=== PATIENT | male | born 1985 | race Caucasian/White ===

== ENCOUNTER 2016-12-28 11:51 | Emergency (ER) | payer OTHER ==
[2016-12-28 12:00] VITALS: BP 123/84; PULSE 95; RESP 17; TEMP 96.4
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
== END 2016-12-28 12:50 | disposition home or self-care (01) ==
LOC: EC 11:51
DX: S09.90XA Unspecified injury of head, initial encounter (principal); F17.200 Nicotine dependence, unspecified, uncomplicated; Z88.0 Allergy status to penicillin; W55.12XA Struck by horse, initial encounter; Y93.52 Activity, horseback riding; Y92.89 Other specified places as the place of occurrence of the external cause
CPT/HCPCS: 70450; 72125; 99283

== ENCOUNTER 2017-06-06 09:55 | Emergency (ER) | payer OTHER ==
[2017-06-06 10:26] VITALS: BP 144/82; TEMP 98
[2017-06-06] MEDS ORDERED: KETOROLAC 60 MG/2 ML VIAL IM STA (10:51)
[2017-06-06] MEDS ORDERED: ORPHENADRINE 30 MG/ML 2 ML VIAL IM STA (10:51)
--- NOTE | 2017-06-06 10:58 | ED ---
General Adult HPI - General Chief complaint: Back Pain/Injury Stated complaint: left shoulder pain Time Seen by Provider: 06/06/17 10:32 Source: patient, RN notes reviewed Mode of arrival: wheelchair Limitations: no limitations - History of Present Illness Initial comments: 31-year-old male presents emergency Department chief complaint of left shoulder pain. He states yesterday he just developed this tightness in left shoulder movement of the shoulder seems to make it worse. Radiates all area left side of the neck. He states movement of the neck seems to make it worse as well. He denies any lifting any trauma any injury to the area. He denies any history of this in the past. He states that he was concerned because he woke up today and it just continues to be presents without that he should be evaluated. Patient denies any recent fever, chills, shortness of breath, chest pain, back pain, abdominal pain, nausea vomiting, numbness or tingling, dysuria or hematuria, constipation or diarrhea, headaches or visual changes, or any other current symptoms. - Related Data Home Medications Medication Instructions Recorded Confirmed FLUoxetine HCL [PROzac] 20 mg PO DAILY 06/06/17 06/06/17 Gabapentin [Neurontin] 300 mg PO TID 06/06/17 06/06/17 Previous Rx's Medication Instructions Recorded Ibuprofen [Motrin] 600 mg PO Q6HR PRN #20 tab 06/06/17 Orphenadrine [Norflex] 100 mg PO Q12H #10 tablet.er 06/06/17 Allergies Allergy/AdvReac Type Severity Reaction Status Date / Time Penicillins Allergy Rash/Hives Verified 06/06/17 10:49 Review of Systems ROS Statement: Those systems with pertinent positive or pertinent negative responses have been documented in the HPI. ROS Other: All systems not noted in ROS Statement are negative. Past Medical History Past Medical History: No Reported History History of Any Multi-Drug Resistant Organisms: None Reported Past Surgical History: No Surgical Hx Reported Past Psychological History: No Psychological Hx Reported Smoking Status: Current every day smoker Past Alcohol Use History: None Reported Past Drug Use History: None Reported General Exam Limitations: no limitations General appearance: alert, in no apparent distress Neck exam: Present: tenderness (Along the left lateral trapezius.), full ROM ( With pain on range of motion). Absent: normal inspection (Patient is sitting with his head tilted to the right side.) Respiratory exam: Present: normal lung sounds bilaterally. Absent: respiratory distress, wheezes, rales, rhonchi, stridor Cardiovascular Exam: Present: regular rate, normal rhythm, normal heart sounds. Absent: systolic murmur, diastolic murmur, rubs, gallop, clicks GI/Abdominal exam: Present: soft, normal bowel sounds. Absent: distended, tenderness, guarding, rebound, rigid Extremities exam: Present: normal inspection, full ROM (Some pain with extremes of range of motion.), tenderness (Along the left upper shoulder blade to the trapezius.), normal capillary refill. Absent: pedal edema, joint swelling, calf tenderness Back exam: Present: normal inspection Neurological exam: Present: alert, oriented X3 Psychiatric exam: Present: normal affect, normal mood Skin exam: Present: warm, dry, intact, normal color. Absent: rash Course Vital Signs 06/06/17 10:24 Temperature 98.0 F Pulse Rate 119 H Respiratory 16 Rate Blood Pressure 144/82 O2 Sat by Pulse 98 Oximetry Medical Decision Making - Medical Decision Making 31-year-old male presents to the emergency department with a chief complaint of left shoulder pain. This time on examination he does appear to have muscle spasm to the left trapezius as well as along the rhomboids. Movement of the shoulder causes increased pain. This and we'll start him on muscle relaxers. We discussed heat packs we did discuss follow-up parameters all questions. Patient stated that he understood he is agreement this plan. All questions have been answered. He will be discharged. - Radiology Data Radiology results: report reviewed, image reviewed Disposition Clinical Impression: Trapezius muscle spasm Disposition: HOME SELF-CARE Condition: Stable Instructions: Muscle Spasm (ED) Additional Instructions: Please use medication as discussed. Please follow up with family doctor if symptoms have not improved over the next two days. Please return to the emergency room if your symptoms increase or worsen or for any other concerns. Prescriptions: Ibuprofen [Motrin] 600 mg PO Q6HR PRN #20 tab PRN Reason: Pain Orphenadrine [Norflex] 100 mg PO Q12H #10 tablet.er Referrals: Betty Green MD [STAFF PHYSICIAN] - 1-2 days Time of Disposition: 10:58
[2017-06-06 11:11] VITALS: PULSE 102; RESP 18
== END 2017-06-06 11:11 | disposition home or self-care (01) ==
LOC: EC 09:55
DX: M62.838 Other muscle spasm (principal); F17.200 Nicotine dependence, unspecified, uncomplicated; Z79.899 Other long term (current) drug therapy; Z88.0 Allergy status to penicillin
CPT/HCPCS: 93005; 99283; 96372 ×2; J2360; J1885

== ENCOUNTER 2017-07-05 21:10 | Inpatient (IN) | payer OTHER ==
[2017-07-05] MEDS ORDERED: SODIUM CHLORIDE 0.9% 1,000 ML IV ONE (22:13)
[2017-07-05] MEDS ORDERED: ACETAMINOPHEN TAB 325 MG TAB PO STA (22:13)
[2017-07-05] MEDS ORDERED: RX INFO: IV CONTRAST WAS GIVEN 1 EACH MISC MISCELLANE PRN (22:13)
[2017-07-05 22:42] LABS: Basophils % (A) 0 %; Eosinophils # (A) 0.3 k/uL (0-0.7); Eosinophils % (A) 2 %; HCT 43.5 % (39.0-53.0); Lymphocytes # (A) 2.3 k/uL (1.0-4.8); Lymphocytes % (A) 21 %; MCH 28.1 pg (25.0-35.0); MCHC 32.2 g/dL (31.0-37.0); MCV 87.2 fL (80.0-100.0); Mean Platelet Volume 6.3; Monocytes # (A) 0.7 k/uL (0-1.0); Monocytes % (A) 6 %; Neutrophils # (A) 7.7 k/uL (1.3-7.7); Neutrophils % (A) 69 %; Platelet Count 396 k/uL (150-450); RBC 4.99 m/uL (4.30-5.90); RDW 13.3 % (11.5-15.5); WBC 11.1 k/uL (3.8-10.6)
[2017-07-05 22:53] LABS: Partial Thromboplastin Time 25.1 sec (22.0-30.0); Prothrombin Time 9.7 sec (9.0-12.0)
[2017-07-05 22:54] LABS: ALT 41 U/L (21-72); AST 37 U/L (17-59); Albumin 3.9 g/dL (3.5-5.0); Alkaline Phosphatase 99 U/L (38-126); Anion Gap 13 mmol/L; Blood Urea Nitrogen 12 mg/dL (9-20); Carbon Dioxide 27 mmol/L (22-30); Chloride 100 mmol/L (98-107); Glucose 78 mg/dL (74-99); Lipase 91 U/L (23-300); Potassium 4.5 mmol/L (3.5-5.1); Sodium 140 mmol/L (137-145); Total Bilirubin 0.7 mg/dL (0.2-1.3); Total Protein 7.6 g/dL (6.3-8.2)
[2017-07-05] MEDS ORDERED: MORPHINE SULFATE 4 MG/ML SYRINGE IVP STA (23:30)
--- NOTE | 2017-07-05 23:33 | CT ---
EXAMINATION TYPE: CT chest angio for PE DATE OF EXAM: 07/05/2017 COMPARISON: NONE HISTORY: Chest pain CT DLP: 452.30 mGycm Automated exposure control for dose reduction was used. CONTRAST: CT Chest for pulmonary embolism performed with with IV Contrast, patient injected with 70 mL of Omnip aque 350. There are 3-D post processed images. FINDINGS: There is patchy linear density at the lung bases. There is a 3.4 cm irregular somewhat spiculated density at the anterior left lung apex. This is proba kalee within the lung. I see no filling defects in the pulmonary arteries. Heart size is normal. There is no mediastinal lalo nopathy. There are no hilar masses. There is no sign of aortic aneurysm or dissection. The bony thora x is intact. IMPRESSION: No evidence of pulmonary embolism. Mild pleural reaction and atelectasis at the posterior lung bases. Masslike infiltrate adjacent to the pleura in the anterior left upper lobe. This could be inflammator y. Follow-up is recommended to show clearing.
[2017-07-06] MEDS ORDERED: VANCOMYCIN IV PER PHARMACY 1 EACH MISC MISCELLANE PRN (00:10)
[2017-07-06] MEDS ORDERED: CEFEPIME 2 GM in SODIUM CHLORIDE 0.9% 50 ML IVPB STA (00:10)
[2017-07-06] MEDS ORDERED: ACETAMINOPHEN TAB 325 MG TAB PO PRN ×2 (00:38→00:44)
[2017-07-06] MEDS ORDERED: ONDANSETRON 4 MG/2 ML VIAL IVP PRN (00:38)
[2017-07-06] MEDS ORDERED: NALOXONE 0.4 MG/ML 1 ML VIAL IV PRN (00:38)
--- NOTE | 2017-07-06 00:38 | ED ---
Chest Pain HPI - General Chief Complaint: Chest Pain Stated Complaint: chest pain Time Seen by Provider: 07/05/17 21:29 Source: patient Mode of arrival: ambulatory Limitations: no limitations - History of Present Illness Initial Comments: 32-year-old male with past medical history of IV drug abuse, sober for the last year, presenting for evaluation of chest pain, shortness breath, fevers, diaphoresis. He states that his symptoms have been ongoing for the last month and was seen at this time due to a mass on his back. He states that mass has since moved around to the anterior upper left chest and is tender to palpation. He states he's been taking Motrin and Tylenol without any improvement in his symptoms. Furthermore he says that he has been having persistent fevers and chills for the duration of the month. The shortness of breath is worsened with exertion and chest pain is primarily located over the mass. There are no alleviating factors. - Related Data Home Medications Medication Instructions Recorded Confirmed FLUoxetine HCL [PROzac] 20 mg PO DAILY 06/06/17 07/05/17 Gabapentin [Neurontin] 300 mg PO TID 06/06/17 07/05/17 Acetaminophen Tab [Tylenol Tab] 650 mg PO Q4H PRN 07/05/17 07/05/17 Cilostazol [Pletal] 100 mg PO BID 07/05/17 07/05/17 Ranitidine HCl [Zantac] 75 mg PO HS PRN 07/05/17 07/05/17 Allergies Allergy/AdvReac Type Severity Reaction Status Date / Time NSAIDS (Non-Steroidal Allergy Unknown Verified 07/05/17 21:47 Anti-Inflamma Penicillins Allergy Rash/Hives Verified 07/05/17 21:47 Review of Systems ROS Statement: Those systems with pertinent positive or pertinent negative responses have been documented in the HPI. ROS Other: All systems not noted in ROS Statement are negative. Constitutional: Reports: fever, chills, night sweats Eyes: Denies: eye pain, eye discharge, vision change ENT: Denies: ear pain, throat pain, dental pain Respiratory: Reports: cough, dyspnea. Denies: wheezes, hemoptysis, stridor Cardiovascular: Reports: chest pain, dyspnea on exertion. Denies: palpitations , orthopnea, edema Endocrine: Reports: fatigue. Denies: polydipsia, polyuria Gastrointestinal: Denies: abdominal pain, nausea, vomiting, diarrhea, constipation Genitourinary: Denies: urgency, dysuria Musculoskeletal: Denies: back pain, arthralgia, myalgia Skin: Denies: rash, lesions Neurological: Denies: headache, weakness Psychiatric: Denies: anxiety, depression Hematological/Lymphatic: Denies: easy bleeding, easy bruising EKG Findings - EKG Comments: EKG Findings:: Sinus tachycardia with a ventricular rate of 113, BALAJI 148, QRS 74 , QT/QTC 356/488 Past Medical History Past Medical History: No Reported History Additional Past Medical History / Comment(s): cellulitis to left foot and right arm. History of Any Multi-Drug Resistant Organisms: None Reported Past Surgical History: No Surgical Hx Reported Past Psychological History: No Psychological Hx Reported Smoking Status: Current every day smoker Past Alcohol Use History: None Reported Past Drug Use History: None Reported General Exam Limitations: no limitations General appearance: alert, in distress (Mild to moderate), other (Diaphoretic) Head exam: Present: atraumatic, normocephalic, normal inspection Eye exam: Present: normal appearance, PERRL, EOMI. Absent: scleral icterus, conjunctival injection, periorbital swelling ENT exam: Present: normal exam, mucous membranes dry Neck exam: Present: normal inspection. Absent: tenderness, meningismus, lymphadenopathy Respiratory exam: Present: normal lung sounds bilaterally. Absent: respiratory distress, wheezes, rales, rhonchi, stridor Cardiovascular Exam: Present: normal rhythm, tachycardia, other (left upper chest wall pain) GI/Abdominal exam: Present: soft, normal bowel sounds. Absent: distended, tenderness, guarding, rebound, rigid Rectal exam: Present: deferred Extremities exam: Present: normal inspection, full ROM, normal capillary refill. Absent: tenderness, pedal edema, joint swelling, calf tenderness Back exam: Present: normal inspection, full ROM Neurological exam: Present: alert, oriented X3, CN II-XII intact Psychiatric exam: Present: normal affect, normal mood Skin exam: Present: warm, intact, normal color, diaphoretic. Absent: rash Course Vital Signs 07/05/17 07/05/17 07/05/17 21:20 22:25 23:19 Temperature 100.1 F H 98.5 F Pulse Rate 117 H 94 Respiratory 20 18 Rate Blood Pressure 133/90 132/80 O2 Sat by Pulse 99 96 Oximetry 07/06/17 07/06/17 00:01 01:02 Temperature Pulse Rate 88 87 Respiratory 18 18 Rate Blood Pressure 137/76 142/74 O2 Sat by Pulse 99 99 Oximetry Chest Pain MDM - MDM 32-year-old male with past medical history of IV drug abuse presenting for evaluation of a month of diaphoresis, fevers, chest pain, shortness of breath. On physical examination the patient is febrile and tachycardic and is diaphoretic. There is a elevated mass to the left upper chest just inferior to the left clavicle that is tender to palpation without overlying erythema or crepitus to palpation. Given his past medical history is concern for endocarditis. We'll obtain labs, blood cultures, CT PE, and order an echo for the morning. Labs revealed no significant abnormalities. CT PE showed a 3.4 cm irregular somewhat speculated density of the anterior left lung apex that is likely within the lung. No evidence of pulmonary embolism. Patient started on vancomycin and cefepime. Dr. Emerson PHAM accepted admission with request for consult with Dr. Arellano (pulm) and Dr. Cole (ID). Disposition Clinical Impression: Chest pain, Shortness of breath, Diaphoresis, Tachycardia Disposition: ADMITTED IP TO THIS HOSP Referrals: Adebayo Falcon MD [Primary Care Provider] - 1-2 days Decision to Admit Reason: Admit from EC Decision Date: 07/06/17 Decision Time: 00:38
[2017-07-06] MEDS ORDERED: FAMOTIDINE 20 MG TAB PO PRN (00:44)
[2017-07-06] MEDS ORDERED: VANCOMYCIN 1,500 MG in SODIUM CHLORIDE 0.9% 250 ML IVPB ONE (01:00)
[2017-07-06] MEDS: SODIUM CHLORIDE 0.9% 1,000 ML IV SCH ×2 (01:02→08:56)
[2017-07-06 01:35] VITALS: BMI 30.9
[2017-07-06] MEDS: MORPHINE SULFATE 4 MG/ML SYRINGE IV PRN ×3 (04:21→12:24)
[2017-07-06] MEDS: VANCOMYCIN 1,500 MG in SODIUM CHLORIDE 0.9% 250 ML IVPB SCH ×2 (06:37→15:55)
[2017-07-06] MEDS: GABAPENTIN 300 MG CAP PO SCH ×2 (08:38→16:34)
[2017-07-06] MEDS ORDERED: FLUoxetine HCL 20 MG CAP PO SCH (09:00)
[2017-07-06] MEDS ORDERED: CILOSTAZOL 100 MG TAB PO SCH (09:00)
--- NOTE | 2017-07-06 12:19 | XR ---
EXAMINATION TYPE: XR chest 1V portable DATE OF EXAM: 07/06/2017 Comparison: CT 07/05/2017 Clinical History: 32 year-old male shortness of breath, evaluate for pneumonia? Findings: Heart normal size. Aorta and pulmonary vasculature within normal limits. Focal left apical density. N o other consolidation or pleural effusion. Impression: Focal left apical consolidation suspicious for infectious process. The patient's recent CT is reviewe d and suggests cellulitis in the left supraclavicular and clavicular region with underlying pectorali s myositis. Infection likely extends along the left sternoclavicular joint, left first costosternal j unction, into the left anterior superior mediastinum and with contiguous extension of infectious proc ess into the anterior left upper lobe. ID consultation recommended. Ultrasound may be useful to diffe rentiate phlegmon from any focal fluid along the chest wall and could also assess for any significant sternoclavicular joint effusion. Findings called to MUNA Sol on 6SEL at 12:10pm
--- NOTE | 2017-07-06 13:10 | ECHOF ---
Referral Reason:Chest pain MEASUREMENTS -------- HEIGHT: 180.3 cm WEIGHT: 98.0 kg BP: 132/69 IVSd: 1.1 cm (0.6 - 1.1) LVIDd: 4.4 cm (3.9 - 5.3) LVPWd: 1.0 cm (0.6 - 1.1) IVSs: 1.8 cm LVIDs: 2.3 cm LVPWs: 1.6 cm Ao Diam: 3.6 cm (2.0 - 3.7) AV Cusp: 2.2 cm (1.5 - 2.6) LA Diam: 3.2 cm (2.7 - 3.8) MV EXCURSION: 28.026 mm (> 18.000) MV EF SLOPE: 207 mm/s (70 - 150) EPSS: 1.9 cm MV E Jeremy: 0.96 m/s MV DecT: 183 ms MV A Jeremy: 0.81 m/s MV E/A Ratio: 1.19 RAP: 5.00 mmHg RVSP: 11.51 mmHg FINDINGS -------- Sinus rhythm. This was a technically good study. The left ventricular size is normal. There is borderline concentric left ventricular hypertrophy. Overall left ventricular systolic function is normal with, an EF between 55 - 60 %. The right ventricle is normal in size and function. The left atrium is normal in size. The right atrium is normal in size. The aortic valve is trileaflet, and appears structurally normal. No aortic stenosis or regurgitation. The mitral valve leaflets are mildly thickened. There is trace mitral regurgitation. Trace tricuspid regurgitation present. The right ventricular systolic pressure, as measured by Dopp ler, is 11.51mmHg. Pulmonic valve appears structurally normal. The aortic root size is normal. Normal inferior vena cava with normal inspiratory collapse consistent with estimated right atrial pre ssure of 5 mmHg. The pericardium is normal. CONCLUSIONS -------- 1. Sinus rhythm. 2. This was a technically good study. 3. The left ventricular size is normal. 4. There is borderline concentric left ventricular hypertrophy. 5. Overall left ventricular systolic function is normal with, an EF between 55 - 60 %. 6. The right ventricle is normal in size and function. 7. The left atrium is normal in size. 8. The right atrium is normal in size. 9. The aortic valve is trileaflet, and appears structurally normal. No aortic stenosis or regurgitati on. 10. The mitral valve leaflets are mildly thickened. 11. There is trace mitral regurgitation. 12. Trace tricuspid regurgitation present. 13. The right ventricular systolic pressure, as measured by Doppler, is 11.51mmHg. 14. Pulmonic valve appears structurally normal. 15. The aortic root size is normal. 16. Normal inferior vena cava with normal inspiratory collapse consistent with estimated right atrial pressure of 5 mmHg. 17. The pericardium is normal. INTEGRATIVE MEDICINE PHYSICIAN: Lee Ann Chopra RDCS
[2017-07-06 13:42] LABS: Appearance,Urine Clear (Clear); Bilirubin,Urine Negative (Negative); Blood,Urine Negative (Negative); Color,Urine Yellow; Glucose,Urine (UA) Negative (Negative); Ketones,Urine Negative (Negative); Leukocyte Esterase,Urine Negative (Negative); Nitrite,Urine Negative (Negative); Protein,Urine Negative (Negative); Specific Gravity,Urine 1.013 (1.001-1.035)
[2017-07-06 13:55] LABS: Amphetamine Screen,Urine Not Detected (NotDetected); Barbiturate Screen,Urine Not Detected (NotDetected); Benzodiazepines Screen,Urine Not Detected (NotDetected); Cocaine Screen,Urine Not Detected (NotDetected); Methadone Screen, Urine Not Detected (NotDetected); Opiate Screen,Urine Detected (NotDetected); Oxycodone Screen, Urine Not Detected (NotDetected); Phencyclidine Screen,Urine Not Detected (NotDetected); Tricyclic Antidepressant,Urine Not Detected (NotDetected); Urn Cannabinoid Scrn Not Detected (NotDetected)
--- NOTE | 2017-07-06 13:55 | P.CNPUL ---
History of Present Illness Consult date: 07/06/17 Requesting physician: Meet Norman Reason for consult: abnormal CXR/CT Chief complaint: Left scapula, shoulder and anterior wall chest pain History of present illness: This is a pleasant 32-year-old gentleman who has a known history of chronic and ongoing tobacco dependence and previous IV drug abuse with last injections being approximately 1 year ago. He does have a history of a left foot and right arm cellulitis from injections in the past. He had presented here to the emergency room approximately one month ago with complaints of left scapular pain that radiated into the left shoulder and left side of the neck. He denied any injury or trauma to this area. He was treated for a muscle spasm and was treated with muscle relaxants and heating pads. Since that time the pain has continued to worsen and has moved now from the left scapular area up into the left shoulder and down into the anterior portion of his left chest wall. He is in significant amount of discomfort. He has had fever chills or night sweats. No significant shortness of breath, cough or congestion. A CT angiogram of the chest ruled out pulmonary embolism. There is mild pleural reaction and atelectatic chest in the posterior lung bases. There is also a masslike infiltrate adjacent to the pleura in the anterior left upper lobe. A follow-up chest x-ray did reveal focal left apical consolidation suspicious for an infectious process. Dr. Bennett from radiology reread the computed tomography scan of the chest which shows cellulitis in the left supraclavicular and clavicular regions with underlying pectoralis myositis. The infection likely extends along the left sternal clavicular joint, left first costosternal junction and into the left anterior superior mediastinum with contiguous extension of infectious processes and to the anterior left upper lobe. There is concern regarding possible phlegmon. We had asked interventional radiology to obtain a fine-needle aspirate for diagnosis. Infectious disease is on the case as well. Echocardiogram reveals no evidence of vegetation. The patient is seen in consultation on the selective care unit. He is awake and alert. He is quite uncomfortable with continued discomfort to mainly the anterior chest wall. He denies any shortness of breath, cough or congestion. He is maintaining good O2 saturations in the mid 90s on room air. He's been afebrile. Admission temperature 100.1, white count 11.1. C-reactive protein 169. Hemodynamically stable. Review of Systems Eyes: denies blurred vision, denies decreased vision Ears: deny: decreased hearing Ears, nose, mouth and throat: Denies headache, Denies sore throat Cardiovascular: Denies chest pain, Denies shortness of breath Respiratory: Denies cough Gastrointestinal: Reports diarrhea Genitourinary: Reports as per HPI Musculoskeletal: Reports as per HPI, Reports limitation of motion, Reports neck pain, Reports neck stiffness Musculoskeletal: left: shoulder pain, shoulder stiffness Integumentary: Reports as per HPI Neurological: Denies numbness, Denies weakness Psychiatric: Denies anxiety, Denies depression Endocrine: Denies fatigue, Denies weight change Past Medical History Past Medical History: No Reported History Additional Past Medical History / Comment(s): cellulitis to left foot and right arm. History of Any Multi-Drug Resistant Organisms: None Reported Past Surgical History: No Surgical Hx Reported Additional Past Surgical History / Comment(s): had cellulitis in arm and foot operated on Past Anesthesia/Blood Transfusion Reactions: No Reported Reaction Past Psychological History: ADD/ADHD, Anxiety, Depression Smoking Status: Current every day smoker Past Alcohol Use History: None Reported Past Drug Use History: Heroin Additional Drug Use History / Comment(s): Stopped using Heroin 1 year ago - Past Family History Mother Family Medical History: Coronary Artery Disease (CAD) Additional Family Medical History / Comment(s): of heart disease Father Family Medical History: Cancer, Prostate Disorder Additional Family Medical History / Comment(s): of prostate cancer Medications and Allergies Home Medications Medication Instructions Recorded Confirmed Type FLUoxetine HCL [PROzac] 20 mg PO DAILY 06/06/17 07/05/17 History Gabapentin [Neurontin] 300 mg PO TID 06/06/17 07/05/17 History Acetaminophen Tab [Tylenol Tab] 650 mg PO Q4H PRN 07/05/17 07/05/17 History Cilostazol [Pletal] 100 mg PO BID 07/05/17 07/05/17 History Ranitidine HCl [Zantac] 75 mg PO HS PRN 07/05/17 07/05/17 History Allergies Allergy/AdvReac Type Severity Reaction Status Date / Time NSAIDS (Non-Steroidal Allergy Unknown Verified 07/05/17 21:47 Anti-Inflamma Penicillins Allergy Rash/Hives Verified 07/05/17 21:47 Physical Exam Vitals: Vital Signs Temp Pulse Pulse Resp BP BP Pulse Ox 07/06/17 11:34 78 16 07/06/17 11:01 97.9 F 78 16 130/74 96 07/06/17 08:00 91 07/06/17 07:51 98.8 F 91 18 132/73 96 07/06/17 04:00 98.2 F 92 16 132/69 97 07/06/17 01:22 98.0 F 80 18 130/69 100 07/06/17 01:02 87 18 142/74 99 07/06/17 00:01 88 18 137/76 99 07/05/17 23:19 98.5 F 07/05/17 22:25 94 18 132/80 96 07/05/17 21:20 100.1 F H 117 H 20 133/90 99 Intake and Output 07/05/17 07/06/17 07/06/17 22:59 06:59 14:59 Intake Total 1050 Balance 1050 Intake: IV 800 Cefepime 2 gm In Sodium 800 Chloride 0.9% 50 ml @ 100 mls/hr IVPB ONCE STA Rx# :[id number] Intake, IV Titration 250 Amount Vancomycin 1,500 mg In 250 Sodium Chloride 0.9% 250 ml @ 125 mls/hr IVPB Q8H [facility] Rx#:[id number] Other: Voiding Method Toilet Toilet # Voids 1 Weight 99.79 kg 98 kg GENERAL EXAM: Alert, uncomfortable. HEAD: Normocephalic. EYES: Normal reaction of pupils, equal size. NOSE: Clear with pink turbinates. THROAT: No erythema or exudates. NECK: No masses, no JVD. CHEST: Soft tissue swelling in the left scapula left shoulder and anterior chest wall. LUNGS: Equal air entry with no crackles, wheeze, rhonchi or dullness. CVS: S1 and S2 normal with no audible murmur, regular rhythm. ABDOMEN: No hepatosplenomegaly, normal bowel sounds, no guarding or rigidity. SPINE: No scoliosis or deformity SKIN: No rashes CENTRAL NERVOUS SYSTEM: No focal deficits, tone is normal in all 4 extremities. EXTREMITIES: There is no peripheral edema. No clubbing, no cyanosis. Peripheral pulses are intact. Results - Laboratory Findings CBC and BMP: 07/05/17 22:31 18 22:31 PT/INR, D-dimer PT 9.7 sec (9.0-12.0) 07/05/17 22:31 INR 1.0 (<1.2) 07/05/17 22:31 Abnormal lab findings: Abnormal Labs 07/05/17 07/06/17 22:31 12:35 WBC 11.1 H C-Reactive Protein 169.3 H - Diagnostic Findings Chest x-ray: image reviewed CT scan - chest: image reviewed Assessment and Plan Assessment: Impression: #1 Left anterior chest wall pain radiating to the left shoulder and left scapular area with soft tissue swelling. Computed tomography scan of the chest suggests cellulitis in the left supraclavicular and clavicular region with underlying pectoralis myositis. Infection likely extends along the left sternoclavicular joint, left first costosternal junction, and to the left anterior superior mediastinum and with contiguous extension of infectious process into the anterior left upper lobe. Differential includes phlegmon. Plan is for FNA for diagnosis. Echocardiogram reveals no evidence of vegetation. #2 History of previous cellulitis secondary to IV drug abuse. #3 Chronic and ongoing tobacco dependence. Plan: The patient was seen and evaluated by Dr. West. His chest x-ray, CAT scans and labs were all reviewed. We have requested interventional radiology to do a fine-needle aspirate of the soft tissue mass in the anterior chest wall for diagnosis. He is been initiated on vancomycin. ID is on the case. We will also consult cardiothoracic to determine if any intervention may be required regarding extension into the mediastinum. We will continue to monitor him closely and make further recommendations based on his clinical status. I, the cosigning physician, performed a history & physical examination of the patient. Lungs sounds are clear. Maintaining good O2 saturations in the 90s on room air. I discussed the assessment and plan of care with my nurse practitioner, Carrie Sol. I attest to the above consultation as dictated by her. Time with Patient: Greater than 30
[2017-07-06] MEDS ORDERED: MORPHINE ORAL SOLN 10 MG/5 ML CUP PO PRN (13:59)
[2017-07-06] MEDS ORDERED: CEFEPIME 2 GM in SODIUM CHLORIDE 0.9% 50 ML IVPB SCH ×2 (14:15→18:00)
--- NOTE | 2017-07-06 14:55 | CT ---
EXAMINATION TYPE: CT brain wo con DATE OF EXAM: 07/06/2017 COMPARISON: NONE INDICATION: Chest wall infection DLP: 1103 mGycm, Automated exposure control for dose reduction was used. CONTRAST: None CT of the brain is performed utilizing 3 mm thick sections through the posterior fossa and 3 mm thick sections through the remaining calvarium. Study is performed within 24 hours of arrival to the hosp [facility]. No abnormal hyperdensity is present to suggest an acute intracranial hemorrhage. No mass lesion is evident. No acute infarcts are evident. Ventricles and sulci are appropriate for the patient age. Paranasal sinuses and mastoid air cells within the [id number] are clear. IMPRESSIONS: 1. Normal CT Brain
--- NOTE | 2017-07-06 15:32 | CONS ---
CONSULTATION DATE OF SERVICE: 07/06/2017 REASON FOR CONSULTATION: 1. Infection. 2. History of possible endocarditis. HISTORY OF PRESENT ILLNESS: The patient is a 32-year-old male with a past medical history significant for IV drug use: However, the patient said he has been clean for more than a year now. Apparently, the patient starting having some pain in the left upper back area about a month ago for which the patient was seen in the [facility] ER, diagnosed with possible muscle related and treated with pain medication and muscle relaxant. Patient now presenting with a more persistent pain and the pain has now mostly taken up to the left upper chest area. Pain described to be sharp, almost 10/10, and severe and it has been going off and on for almost 1 month now. Patient did have some persistent shortness of breath with it, but denies any significant cough or any sputum production. Denies having any URI symptoms. Some headache, but no nausea, vomiting. No abdominal pain. No diarrhea. Patient no other skin and soft tissue swelling or any redness. He did have a birthmark on right leg from a cigarette. With these symptoms, especially with increased shortness of breath, he came to the ER at [facility] where a CT angiogram was negative for PE and did have some pulmonary reduction and atelectatic changes in the posterior lung base. Patient did have a low-grade fever of 100.1 on admission and a white count of 11.1. CRP was 169.3. Urine drug screen was positive for opiates. UA was negative. Blood culture obtained which are currently pending. Subsequently, a chest x-ray was done this morning by Pulmonary, which was reviewed with the radiologist, did show some focal left upper lobe consolidation suspicious for infectious process. Also, the CT was reviewed with him, which is now showing a left supraclavicular region with most likely swelling and redness that is undergoing involving the pectoralis muscle and extending into the pleural space and superior mediastinum. ID was consulted for further recommendation regarding antibiotic therapy. REVIEW OF SYSTEMS: CONSTITUTIONAL: Positive for weakness and some chills. EYES: No complaint. ENT: No complaint. RESPIRATORY: As per HPI. CARDIOVASCULAR: As per HPI. GENITOURINARY: No complaint. GASTROINTESTINAL: No complaint. MUSCULOSKELETAL: As per HPI. INTEGUMENTARY: No complaint. PSYCHOLOGICAL: No complaint. ENDOCRINE: No complaint. NEUROLOGICAL: No complaint. PAST MEDICAL HISTORY: Significant for IV drug use, cellulitis of left foot and the right arm from IV drug use. PAST SURGICAL HISTORY: Did have drainage of an abscess. PAST PSYCHOLOGICAL HISTORY: Anxiety, depression, ADHD. SOCIAL HISTORY: Current everyday smoker, smokes about a pack a day, did admit of heroin use about a year ago. FAMILY HISTORY: Mother with history of coronary artery disease, of heart attack. Father history of prostate cancer. ALLERGIES: PENICILLIN and NONSTEROIDAL ANTI-INFLAMMATORY MEDICATION. MEDICATION: The patient is currently on Tylenol, Pepcid, Prozac, and Neurontin. Vancomycin pharmacy to dose, Narcan, Zofran. PHYSICAL EXAMINATION: Blood pressure is 130/74 with a pulse of 70, temperature 97.9, he is 96% on room air. General description is a middle-aged male, lying in bed in mild discomfort, but no distress. HEENT: Shows no pallor or scleral icterus. Oral mucosa is moist with no thrush. NECK: Trachea central with no thyromegaly. LUNGS: Unlabored breathing, clear to auscultation with no wheeze or crackles. HEART: S1, S2. Regular rate and rhythm. No murmur. ABDOMEN: Soft. No organomegaly. No tenderness. EXTREMITIES: No edema of the feet. SKIN EXAMINATION: Right leg with burn rodríguez with no cellulitis. No rashes or mass palpable. Examination of the left upper chest wall, slightly swelling with noticeable redness, is tender to touch. No warmth. NEUROLOGICAL: Patient awake, alert, oriented x3. Mood and affect normal. LABS: Hemoglobin is 14, white count 11.1, BUN of 12, creatinine 0.77. Electrolytes have been normal. Liver enzymes are normal. CRP 169. DIAGNOSTIC IMPRESSION AND PLAN: 1. 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 It could be either a gram-positive skin jessica, less likely gram-negative but not entirely excluded. The patient will need extensive surgical debridement of this area and deep culture that should guide further antibiotic therapy. 2. Patient who does have a PENICILLIN ALLERGY that will limit the antibiotic that will be save to use. PLAN: 1. Patient will given vancomycin, pharmacy to dose, target of 15 watching his kidney function very closely. Cefepime 2 g q.12 will be added. 2. CT Surgery has been consulted. The patient needs extensive surgery and debridement of this area and deep cultures in order to cure this infection. 3. IV fluid 4. Will follow up on his clinical condition and culture to further adjust medication if needed. In view of this extensive infection, the patient may benefit from transfer to tertiary care. This was discussed with the admitting physician. SERVANDO / RUSSELL: [id number] / SHANA
--- NOTE | 2017-07-06 15:58 | XR ---
EXAMINATION TYPE: XR spine complete AP and Lat DATE OF EXAM: 07/06/2017 COMPARISON: None HISTORY: 37-year-old male chest wall infection TECHNIQUE: 9 views FINDINGS: Cervical spine: No predental space widening or prevertebral soft tissue swelling. Normal alignment of the cervical sp ine. Odontoid view is normal. There is very mild facet degenerative change noted in the lower cervica l spine. Thoracic spine: Leftward truncal shift probably positional due to pain. 12 rib-bearing thoracic vertebral bodies. All pedicles are visualized. Known left apical consolidation. Mild endplate spondylosis mid to lower tho racic spine. Vertebral body heights are maintained with some limited visualization of upper most thor acic vertebral bodies due to overlying patient's shoulders. Lumbar spine: 5 lumbar type vertebral bodies. Suggestion of mild facet arthropathy lower lumbar spine. There are L4 pars defects with grade 1 anterolisthesis at L4-L5. Bony hyperostotic change along the anterior aspe ct of the L5 superior endplate. IMPRESSION: 1. Cervical spine: Mild spondylotic change lower cervical spine. 2. Thoracic spine: A vertical shift probably positional due to pain. Mild endplate spondylosis mid to lower thoracic spine. 3. Lumbar spine: Suggestion of L4 pars defects and resultant grade 1 anterolisthesis at L4-L5. No sury tebral compression collapse.
[2017-07-06 16:02] VITALS: BP 139/81; PULSE 80; RESP 16; TEMP 97.5
--- NOTE | 2017-07-06 16:09 | US ---
EXAMINATION TYPE: US fine needle aspiration DATE OF EXAM: 07/06/2017 HISTORY: Left chest mass. FINDINGS: Maximal barrier technique was utilized. The skin overlying a suitable path to the patient' s sternoclavicular joint septic arthritis, chest wall phlegmon was localized with ultrasound and the overlying skin prepped and draped. Ultrasound was utilized with sterile technique. Lidocaine was us ed for local anesthesia. A 23 gauge needle was advanced under direct ultrasound guidance, no mary p urulent material was obtained, only minimal sanguinous material obtained. Specimen submitted to micro biology in this culture media. Following the procedure, hemostasis achieved and the patient is disch arged in stable condition without complication. IMPRESSION:STATUS POST ULTRASOUND GUIDED ASPIRATION OF CHEST wall phlegmon and septic arthritic major oclavicular joint, microbiology IS PENDING. THIS PROCEDURE IS PERFORMED BY THE UNDERSIGNED.
--- NOTE | 2017-07-06 17:38 | HP ---
HISTORY AND PHYSICAL HISTORY AND PHYSICAL AND DISCHARGE SUMMARY: CHIEF COMPLAINTS: Recurrent fevers as well as pain and swelling of the left side of the chest. HISTORY OF PRESENT ILLNESS: This 32-year-old gentleman with a past medical history of IV drug abuse and a history of ADD, ADHD, anxiety, depression, being followed by a primary physician in the [facility], was having night sweats for the last one month intermittently. The patient also had a fever. Patient also had chest pains evaluated previously in the ER. Currently the patient noted a swelling and a bulge in the anterior part of the chest. The patient was admitted for further evaluation and treatment. A CT scan of the chest showed extensive osteomyelitis changes in the left sternoclavicular joint which are extending to the chest wall and possibly involving the anterior part of the lung , also. The 2D echo did not show any evidence of vegetation. Infectious disease evaluation and pulmonary evaluation are progressing at this time. There is no history any headache, loss of consciousness or seizures. The white count is elevated. ESR was elevated up to 90 and CRP is 169. PAST MEDICAL HISTORY: 1. History of IV drug abuse. The patient stopped about one year ago. 2. History of ADD, ADHD. 3. Anxiety, depression. HOME MEDICATIONS: 1. Pletal 100 mg p.o. b.i.d. 2. Zantac 75 mg at bedtime p.r.n. 3. Neurontin 300 mg p.o. t.i.d. 4. Prozac 20 mg p.o. daily. 5. Tylenol 650 q.4 p.r.n. ALLERGIES: NSAIDS AND PENICILLIN. FAMILY HISTORY: History of coronary artery disease. SOCIAL HISTORY: History of smoking, continued and ongoing. Previous history of substance abuse ; none currently. REVIEW OF SYSTEMS: ENT: No diminished hearing. No diminished vision. CARDIOVASCULAR SYSTEM: As mentioned earlier. RESPIRATORY SYSTEM: As mentioned earlier. GI: No nausea, vomiting. : No dysuria or retention. NERVOUS SYSTEM: No numbness, weakness. ALLERGY/IMMUNOLOGY: No asthma, hayfever. MUSCULOSKELETAL: As mentioned earlier. HEMATOLOGY/ONCOLOGY: No history of anemia. ENDOCRINE: No history of diabetes, hypothyroidism. CONSTITUTIONAL: As mentioned earlier. DERMATOLOGY: Negative. RHEUMATOLOGY: Negative. PSYCHIATRY: As mentioned earlier. PHYSICAL EXAMINATION: Patient alert and oriented x3. Pulse 78, blood pressure 130/74, respiration 16, temperature 97.9, pulse ox 96% on room air. HEENT: Conjunctivae normal. Oral mucosa moist. NECK: No jugular venous distention. No carotid bruit. No lymph node enlargement. CARDIOVASCULAR SYSTEM: S1, S2 muffled. No S3. No S4. RESPIRATORY SYSTEM: Breath sounds diminished at the bases. No rhonchi. No crackles. ABDOMEN: Soft, non-tender. No mass palpable. LEGS: No edema. No swelling. NERVOUS SYSTEM: Higher functions as mentioned earlier. Moves all 4 limbs. No focal motor or sensory deficit. LYMPHATICS: No lymph node palpable in neck, axillae or groin. SKIN: No ulcer, rash, bleeding. EXAMINATION OF THE LEFT CHEST: Slightly tender. Firm mass felt with not much fluctuation present in the left anterior part of the chest. Also some fullness on the left side of the neck appreciated. JOINTS: No active deforming arthropathy. LABS: WBC 11, hemoglobin 14. [employer] is 90. LFTs are normal. CRP 169.3. ASSESSMENT: 1. Left sternoclavicular osteomyelitis with abscess extending into the left chest wall area. 2. Elevated ESR and CRP. 3. Increased white count. 4. Left-sided chest wall pain. 5. Remote history of intravenous drug abuse. 6. History of ADD, ADHD. 7. Anxiety, depression. 8. History of nicotine dependence. RECOMMENDATIONS AND DISCUSSION: In this 32-year-old gentleman who presented with multiple complex medical issues , we will monitor the patient closely. At this time I discussed the case with [facility] per recommendation of Infectious Disease and Dr. West, the nursing specialist. The patient will be transferred to [facility] for further evaluation and treatment. The possibility of infections such as brucellosis also to be considered because of the patient's contact with farm animals recently. Please also note that the patient also gives history of intravenous drug abuse, though remotely, and also 2D echo did not show any vegetations; however, the patient will require tertiary care and management. Currently the patient is started on vancomycin. Please refer to the [facility] for the list of medications, but the patient will be transferred to [facility] in stable condition with guarded prognosis. MMODL / IJN: [id number] / SHANA
[2017-07-07] MEDS ORDERED: VANCOMYCIN TROUGH DUE 1 EACH MISC MISCELLANE ONE (06:00)
== END 2017-07-06 20:15 | disposition short-term general hospital (02) | DRG 540 ==
LOC: SUPCPDRO 21:10 → EC 21:10 → 6SEL 07-06 00:38 → OBSVTOIN 07-06 15:09
PROVIDERS: ADMIT Internal Medicine; ATTEND Internal Medicine
PROC: 0W983ZX Drainage of Chest Wall, Percutaneous Approach, Diagnostic (ICD-10-PCS; principal; 2017-07-06)
DX: M86.9 Osteomyelitis, unspecified (principal); L02.213 Cutaneous abscess of chest wall; F17.210 Nicotine dependence, cigarettes, uncomplicated; F32.9 Major depressive disorder, single episode, unspecified; F41.9 Anxiety disorder, unspecified; F90.9 Attention-deficit hyperactivity disorder, unspecified type; M60.9 Myositis, unspecified; Q82.5 Congenital non-neoplastic nevus; Z79.899 Other long term (current) drug therapy; Z80.42 Family history of malignant neoplasm of prostate; Z82.49 Family history of ischemic heart disease and other diseases of the circulatory system; Z88.0 Allergy status to penicillin; Z88.6 Allergy status to analgesic agent
CPT/HCPCS: 10022; 36415; 70450; 71045; 71275; 72082; 76942; 80053; 80306; 81003; 83605; 83690; 83880; 84484; 85025; 85610; 85652; 85730; 86140; 87040; 87070; 87075; 87086; 87205; 93005; 93306; 96361; 96365; 96372; 96375; 99283; 99285